=== PATIENT | female | born 1935 | race Caucasian/White ===

== ENCOUNTER 2016-08-29 17:27 | Emergency (ER) | payer MEDICARE, OTHER ==
--- NOTE | ~2016-08-29 | CR2 ---
[facility] A Service of [facility] RADIOLOGY TEXT RESULTS PATIENT: MILTON COTTON LOCATION: [facility] : 33 UNIT #: [id number] AGE: [address]: Bari Kaufman MD SEX: F ORDER DR: [id number] [facility] [address] [place], [place] [address] [id number] E MR#: [id number] #: [id number] NAME: MILTON COTTON : 1935 SEX: F STUDY DATE/TIME: 08/29/2016 17:55 UNIT: [facility] ROOM: STUDY DESCRIPTION: CR Abdomen Acute Series Attending Physician: Bari Kaufman M.D. Ordering Physician: Ed Louie Simons M.D. Primary Care Physician: Robert Hernandez M.D. MEDICAL IMAGING REPORT This report is preliminary unless electronic signature is present EXAM Acute abdominal series. INDICATION Abdominal pain and constipation for 1 week. FINDINGS CHEST: PA view of the chest compared to 06/18/2016. Heart and mediastinal contours are unchanged. There is background COPD. No focal consolidation. ABDOMEN: Upright and supine AP radiograph of the abdomen compared to 05/21/2011. The bowel gas pattern is nonobstructive. No free air. There is a large volume of stool in the rectum and in the sigmoid colon. Benign granulomas are noted in the liver. No acute osseous abnormalities. IMPRESSION Large volume of stool in the sigmoid colon and rectum. Nonobstructive bowel gas pattern. Dictated by... Sukumar Bennett M.D. THIS IS AN ELECTRONICALLY VERIFIED REPORT Sukumar Bennett M.D. at 08/30/2016 12:14 PM ANGELLA/renard TD: 08/30/2016 09:38 JOB #: [id number] MEDICAL IMAGING REPORT [facility] A Service of [facility] RADIOLOGY TEXT RESULTS PATIENT: MILTON COTTON LOCATION: [facility] : 34 UNIT #: [id number] AGE: [address]: Bari Kaufman MD SEX: F ORDER DR: COPY
[~2016-08-29 17:27] MED LIST: KLOR-CON PO; LASIX PO; LORTAB 5/500 TA1 TA1 PO; LOTREL 10/20 MG1 CAP PO; PHENERGAN DM1 ML DOB; ZOCOR PO
[2016-08-29 17:28] LABS: URINE SOURCE CLEAN CATCH
[2016-08-29 17:36] LABS: URINE APPEARANCE CLEAR; URINE BILIRUBIN NEG (NEG); URINE BLOOD NEG (NEG); URINE COLOR YELLOW; URINE GLUCOSE NEG (NEG); URINE KETONE NEG (NEG); URINE LEUKOCYTE ESTERASE NEG (NEG); URINE NITRATE NEG (NEG); URINE PROTEIN TRACE (NEG); URINE SPECIFIC GRAVITY 1.014 (1.003-1.035)
[2016-08-29 17:41] LABS: BASOPHIL# 0.1 X10e3 (0-0.3); BASOPHIL% 0.5 % (0-2.5); EOSINOPHIL% 0.1 % (0.0-7.0); HEMATOCRIT 44.3 % (35.0-45.0); HEMOGLOBIN 14.7 gm/dL (12.0-16.0); LYMPHOCYTE# 1.9 X10e3 (1.0-3.5); LYMPHOCYTE% 17.4 % (17.0-45.0); MEAN CELL VOLUME 87.4 FL (83-96); MEAN CORPUSCULAR HGB CONC 33.2 g/dL (30-36); MEAN PLATELET VOLUME 8.1 FL (6.5-11.5); MONOCYTE# 0.5 X10e3 (0-1.0); MONOCYTE% 4.6 % (3.0-12.0); NEUTROPHIL# 8.7 X10e3 (1.5-7.1); NEUTROPHIL% 77.4 % (40-75); PLATELET COUNT 265 X10e3 (140-420); RED BLOOD COUNT 5.07 X10e (3.90-5.30); RED CELL DISTRIBUTION WIDTH 13.5 % (11.0-15.5); WHITE BLOOD COUNT 11.2 X10e3 (4.0-10.5)
[2016-08-29 17:47] LABS: DIFF IND NO
[2016-08-29 17:49] LABS: CULTURE INDICATED? NO
[2016-08-29 18:09] LABS: ALBUMIN SERUM 4.7 g/dL (3.5-5.0); ALKALINE PHOSPHATASE 71 U/L (32-92); ALT (SGPT) 24 U/L (10-40); AST (SGOT) 23 U/L (10-42); BILIRUBIN, DIRECT 0.1 mg/dL (0.0-0.2); BILIRUBIN,INDIRECT 0.7 mg/dL (0.0-0.9); BILIRUBIN,TOTAL 0.8 mg/dL (0.2-2.0); BLOOD UREA NITROGEN 20 mg/dL (9-23); BUN/CREATININE RATIO 33.33; CALCIUM SERUM 9.7 mg/dL (8.4-10.2); CARBON DIOXIDE 25 mmol/L (22-31); CHLORIDE 105 mmol/L (100-111); CREATININE SERUM 0.6 mg/dL (0.6-1.4); GLOM FILT RATE Estimated ABOVE60 mL/min (>60); GLUCOSE FASTING 153 mg/dL (70-110); LIPASE 21 U/L (22-51); POTASSIUM 4.6 mmol/L (3.5-5.1); PROTEIN TOTAL SERUM 8.4 g/dL (6.0-8.3); SODIUM 140 mmol/L (135-145)
== END 2016-08-29 19:42 | disposition home or self-care (01) ==
LOC: CED 17:27
PROVIDERS: Emergency Medicine
DX: K59.00 Constipation, unspecified (principal); I10 Essential (primary) hypertension; E11.9 Type 2 diabetes mellitus without complications; Z90.49 Acquired absence of other specified parts of digestive tract
CPT/HCPCS: 36415; 74022; 80048; 80076; 81003; 83690; 85025; 99284